=== PATIENT | male | born 1945 | race Caucasian/White ===

== ENCOUNTER 2018-07-30 12:57 | Emergency (ER) | payer MEDICARE, OTHER ==
[~2018-07-30] VITALS: Ht 175.3 cm; Wt 88.5 kg
[2018-07-30 13:35] LABS: BASOPHILS % (AUTO) 1 % (0-10); EOSINOPHILS # (AUTO) 0.1 10^3/uL (0.0-0.3); EOSINOPHILS % (AUTO) 1 % (0-10); HEMATOCRIT 43 % (40-54); HEMOGLOBIN 14.8 G/DL (13.3-17.7); LYMPHOCYTES # (AUTO) 1.4 X 10^3 (1.0-4.0); LYMPHOCYTES % (AUTO) 29 % (12-44); MEAN CORPUSCULAR HEMOGLOBIN 30 PG (25-34); MEAN CORPUSCULAR HGB CONC 35 G/DL (32-36); MEAN CORPUSCULAR VOLUME 86 FL (80-99); MONOCYTES # (AUTO) 0.4 X 10^3 (0.0-1.0); MONOCYTES % (AUTO) 9 % (0-12); NEUTROPHILS # (AUTO) 2.9 X 10^3 (1.8-7.8); NEUTROPHILS % (AUTO) 61 % (42-75); PLATELET COUNT 198 10^3/uL (130-400); RED CELL DISTRIBUTION WIDTH 13.2 % (10.0-14.5); WHITE BLOOD COUNT 4.9 10^3/uL (4.3-11.0)
--- NOTE | 2018-07-30 13:37 | ED Neurological Problem ---
General Stated Complaint: ANXIETY;CONFUSION History of Present Illness Date Seen by Provider: Jul 30, 2018 Time Seen by Provider: 13:15 Initial Comments 73-year-old male reports over the last week he has noted intermittent confusion. 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 He is staying in [place] in a trailer and lives in [place]. He reports not forgetting every day activities, but he is forgetting decisions that he has made about his current job and this is unusual for him. His is present and hasn't noticed acute changes in his memory but his complaints of forgetting things. No history of dementia, head injuries, fevers, international travel or new medications. He doesn't see a health care provider regularly and is on no medications. He reports increased stress and recent sleep disturbances. He falls asleep but wakes up about 1 am and is up thinking about everything at work for 2 hours. He did have an aortic valve replacement. Timing/Duration: waxing and waning Severity: mild Associated Symptoms: confusion; No fatigue, No fever/chills; insomnia; No loss of consciousness, No muscle spasms, No nausea/vomiting, No numbness in legs/feet , No paresthesia, No ringing in ears, No seizures, No sleepy, No slurred speech , No tingling in legs/feet, No trouble walking, No vision changes, No weakness Allergies and Home Medications Allergies Coded Allergies: No Known Drug Allergies (Unverified , 07/30/18) Home Medications Alprazolam 0.25 Mg Tablet, 0.25 MG PO Q8H PRN for ANXIETY 1/2 to 1 tabled every 8 hours as needed Prescribed by: MITRA FISHER on 07/30/18 1528 Patient Home Medication List Home Medication List Reviewed: Yes Review of Systems Review of Systems Constitutional: no symptoms reported, see HPI Psychiatric/Neurological: See HPI, Anxiety, Other (confusion) All Other Systems Reviewed Negative Unless Noted: Yes Past Zgzbkam-Ubxjag-Gsursp Hx Past Med/Social Hx: Reviewed Nursing Past Med/Soc Hx Past Medical History Surgeries: Yes Valve Replacement Physical Exam Vital Signs Vital Signs - First Documented 07/30/18 13:02 Pulse 86 Resp 17 B/P (MAP) 139/88 (105) Pulse Ox 97 O2 Delivery Room Air Capillary Refill : Height, Weight, BMI Height: '" Weight: lbs. oz. 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 (grossly intact), no motor/ sensory deficits, alert, normal mood/affect, oriented x 3 Crainal Nerves: normal hearing, normal speech Coordination/Gait: normal finger to nose, normal gait, negative Romberg's sign Motor/Sensory: no motor deficit, no sensory deficit, no pronator drift Skin: normal color, warm/dry Progress/Results/Core Measures Results/Orders Lab Results Laboratory Tests Test 07/30/18 13:26 07/30/18 14:37 Range/Units White Blood Count 4.9 4.3-11.0 10^3/uL Red Blood Count 5.00 4.35-5.85 10^6/uL Hemoglobin 14.8 13.3-17.7 G/DL Hematocrit 43 40-54 % Mean Corpuscular Volume 86 80-99 FL Mean Corpuscular Hemoglobin 30 25-34 PG Mean Corpuscular Hemoglobin Concent 35 32-36 G/DL Red Cell Distribution Width 13.2 10.0-14.5 % Platelet Count 198 130-400 10^3/uL Mean Platelet Volume 10.0 7.4-10.4 FL Neutrophils (%) (Auto) 61 42-75 % Lymphocytes (%) (Auto) 29 12-44 % Monocytes (%) (Auto) 9 0-12 % Eosinophils (%) (Auto) 1 0-10 % Basophils (%) (Auto) 1 0-10 % Neutrophils # (Auto) 2.9 1.8-7.8 X 10^3 Lymphocytes # (Auto) 1.4 1.0-4.0 X 10^3 Monocytes # (Auto) 0.4 0.0-1.0 X 10^3 Eosinophils # (Auto) 0.1 0.0-0.3 10^3/uL Basophils # (Auto) 0.0 0.0-0.1 10^3/uL Sodium Level 139 135-145 MMOL/L Potassium Level 3.9 3.6-5.0 MMOL/L Chloride Level 105 98-107 MMOL/L Carbon Dioxide Level 25 21-32 MMOL/L Anion Gap 9 5-14 MMOL/L Blood Urea Nitrogen 19 H 7-18 MG/DL Creatinine 1.01 0.60-1.30 MG/DL Estimat Glomerular Filtration Rate > 60 BUN/Creatinine Ratio 19 Glucose Level 117 H 70-105 MG/DL Calcium Level 8.9 8.5-10.1 MG/DL Corrected Calcium 8.7 8.5-10.1 MG/DL Total Bilirubin 0.5 0.1-1.0 MG/DL Aspartate Amino Transf (AST/SGOT) 18 5-34 U/L Alanine Aminotransferase (ALT/SGPT) 19 0-55 U/L Alkaline Phosphatase 47 40-136 U/L Total Protein 6.5 6.4-8.2 GM/DL Albumin 4.2 3.2-4.5 GM/DL TSH Alfalfa Testing 1.46 0.35-4.94 UIU/ML Urine Color YELLOW Urine Clarity CLEAR Urine pH 6 5-9 Urine Specific [place] 1.010 L 1.016-1.022 Urine Protein NEGATIVE NEGATIVE Urine Glucose (UA) NEGATIVE NEGATIVE Urine Ketones NEGATIVE NEGATIVE Urine Nitrite NEGATIVE NEGATIVE Urine Bilirubin NEGATIVE NEGATIVE Urine Urobilinogen NORMAL NORMAL MG/DL Urine Leukocyte Esterase 1+ H NEGATIVE Urine RBC (Auto) NEGATIVE NEGATIVE Urine RBC NONE /HPF Urine WBC 2-5 /HPF Urine Crystals NONE /LPF Urine Bacteria NEGATIVE /HPF Urine Casts NONE /LPF Urine Mucus NEGATIVE /LPF Urine Culture Indicated NO My Orders Orders - MITRA FISHER Comprehensive Metabolic Panel (07/30/18 13:22) Thyroid Analyzer (07/30/18 13:22) Ua Culture If Indicated (07/30/18 13:22) Ekg Tracing (07/30/18 13:22) Cbc With Automated Diff (07/30/18 13:22) Vital Signs/I&O 07/30/18 07/30/18 13:02 15:45 Pulse 86 64 Resp 17 16 B/P (MAP) 139/88 (105) 147/90 (109) Pulse Ox 97 95 O2 Delivery Room Air Room Air Progress Progress Note : Time: 13:15 Progress Note Patient seen and evaluated, recommended labs and EKG. Exam is essentially normal. We'll continue to monitor. 1400 Pt resting in room with eyes closed, has not provided urine for UA. Pt given water. 1430 All labs WNL. Neuro exam continues to be WNL, no deficits. Memory intact, remembers 3 words from beginning of exam. 1500 Spoke at length with the patient and his . He usually has breaks between jobs he takes, this year he did not take any breaks. He is under significant pressure at work to complete a job. He does feel the job is adding stress and anxiety to his life. He hopes to have 3-4 more weeks, then this job will be over and he will be home with no future jobs planned in the immediate future. Discussed trying low does anxiety medicine. Ambulates with a steady gait. Discharge instructions and return precautions reviewed in detail with the patient and his . They agreed with this plan of care, and will return immediately if his symptoms change. Initial ECG Impression Date: Jul 30, 2018 Initial ECG Impression Time: 13:16 Initial ECG Rate: 77 Initial ECG Rhythm: Normal Sinus Initial ECG Intervals: Normal Initial ECG Intervals [place] 164; QRSD 94; QT 364; QTc 412; [place] P 15; QRS -4; T 32 Initial ECG Impression: Normal Initial ECG Comparisson: No Previous ECG Available Departure Impression Primary Impression: Work-related stress Additional Impression: Anxiety Disposition: 01 HOME, SELF-CARE Condition: Improved Departure-Patient Inst. Decision time for Depature: 15:10 Patient Instructions: Anxiety, Adult (DC), Stress Add. Discharge Instructions: Try 1/2 to 1 tablet of Xanax in evening or before bed. Take periods of rest during the day. Try walking for 5-10 minutes in the evening. Follow-up with your primary care provider and city library director when you return home. Return to emergency department if increased confusion, additional symptoms or new acute problems. Scripts Alprazolam (Xanax) 0.25 Mg Tablet 0.25 MG PO Q8H PRN for ANXIETY, #12 TAB 0 Refills 1/2 to 1 tabled every 8 hours as needed Prov: MITRA FISHER 07/30/18 MITRA FISHER Jul 30, 2018 13:37
[2018-07-30 13:55] LABS: ALANINE AMINOTRANSFERASE 19 U/L (0-55); ALBUMIN 4.2 GM/DL (3.2-4.5); ALKALINE PHOSPHATASE 47 U/L (40-136); BILIRUBIN,TOTAL 0.5 MG/DL (0.1-1.0); BUN/CREATININE RATIO 19; CALCIUM 8.9 MG/DL (8.5-10.1); CARBON DIOXIDE 25 MMOL/L (21-32); CHLORIDE 105 MMOL/L (98-107); CREATININE SERUM 1.01 MG/DL (0.60-1.30); GFR ESTIMATED > 60; GLUCOSE 117 MG/DL (70-105); POTASSIUM 3.9 MMOL/L (3.6-5.0); SODIUM 139 MMOL/L (135-145); TOTAL PROTEIN 6.5 GM/DL (6.4-8.2)
[2018-07-30 14:14] LABS: TSH (THYROID ANALYZER) 1.46 UIU/ML (0.35-4.94)
[2018-07-30 14:44] LABS: BILIRUBIN,URINE NEGATIVE (NEGATIVE); CLARITY,URINE CLEAR; COLOR,URINE YELLOW; GLUCOSE, URINE (UA) NEGATIVE (NEGATIVE); KETONES,URINE NEGATIVE (NEGATIVE); LEUKOCYTE ESTERASE ,URINE 1+ (NEGATIVE); NITRITE,URINE NEGATIVE (NEGATIVE); PH,URINE 6 (5-9); PROTEIN,URINE NEGATIVE (NEGATIVE); UROBILINOGEN,URINE NORMAL (NORMAL)
[2018-07-30 14:53] LABS: BACTERIA,URINE NEGATIVE /HPF
[2018-07-30] MEDS ORDERED: ALPR0.25 PO (15:28)
[2018-07-30 15:45] VITALS: BP 147/90
== END 2018-07-30 15:45 | disposition home or self-care (01) ==
LOC: ER 13:00
DX: F41.9 Anxiety disorder, unspecified (principal); Z56.3 Stressful work schedule
CPT/HCPCS: 36415; 80053; 81000; 84443; 85025; 93005